=== PATIENT | female | born 1970 | race Caucasian/White ===

== ENCOUNTER 2021-07-19 15:29 | Inpatient (IN) | payer MEDICAID, OTHER ==
[~2021-07-19] VITALS: Ht 170.2 cm; Wt 101.6 kg
[2021-07-19 17:20] LABS: BASOPHILS % (AUTO) 0.9 % (0.0-2.0); EOSINOPHILS % (AUTO) 0.5 % (1.0-6.0); HEMATOCRIT 44.8 % (36-46); HEMOGLOBIN 13.8 g/dL (12.0-16.0); LYMPHOCYTES # (AUTO) 1.5 K/uL (1.0-4.8); LYMPHOCYTES % (AUTO) 25.1 % (22.0-44.0); MEAN CORPUSCULAR HGB CONC 30.8 G/dL (31.0-37.0); MEAN CORPUSCULAR VOLUME 75 fL (80-100); MONOCYTES # (AUTO) 0.5 K/uL (0.1-1.0); MONOCYTES % (AUTO) 7.9 % (2.0-9.0); NEUTROPHILS # (AUTO) 3.9 K/uL (1.8-7.7); NEUTROPHILS % (AUTO) 65.6 % (40.0-70.0); PLATELET COUNT (AUTO) 337 K/uL (150-450); RED BLOOD CELL COUNT(AUTO) 5.99 MIL/uL (4.00-5.20); RED CELL DISTRIBUTION WIDTH 34.1 % (11.5-14.5)
[2021-07-19 17:33] LABS: ANION GAP 8 mmol/L (8-16); CALCIUM, TOTAL 9.2 mg/dL (8.8-10.5); CARBON DIOXIDE 31 mmol/L (22-29); CHLORIDE 103 mmol/L (98-107); GLOMERULAR FILTR. RATE CALC > 60 mL/min (>60); GLUCOSE,RANDOM 91 mg/dL (70-110); POTASSIUM 4.4 mmol/L (3.5-5.1); SODIUM SERUM 142 mmol/L (136-145); UREA NITROGEN, BLOOD 10 mg/dL (7-18)
[2021-07-19 17:38] LABS: ALANINE AMINOTRANSFERASE 16 U/L (12-78); ALBUMIN 3.6 g/dL (3.4-5.0); ALKALINE PHOSPHATASE 89 U/L (46-116); ASPARTATE AMINOTRANSFERASE 11 U/L (15-37); BILIRUBIN,TOTAL 0.5 mg/dL (0.1-1.0); TOTAL PROTEIN, SERUM 7.5 g/dL (6.4-8.2)
[2021-07-19 18:01] LABS: COVID AG,FIA SOURCE NASOPHARYNGEAL
[2021-07-19] MEDS ORDERED: ONDANSETRON HCL 4 MG/2 ML VIAL IVP PRN (21:45)
[2021-07-19] MEDS ORDERED: ACETAMINOPHEN 325 MG TABLET PO PRN (21:45)
[2021-07-19 22:11] LABS: THYROID STIMULATING HORMONE 0.51 uIU/mL (0.36-3.74)
[2021-07-19] MEDS ORDERED: ONDANSETRON HCL 4 MG TABLET PO PRN (23:15)
[2021-07-19 23:56] VITALS: BP 147/90
[2021-07-20] MEDS: HEPARIN SODIUM,PORCINE 5,000 UNITS/ML VIAL SQ SCH ×3 (00:09→16:31)
[2021-07-20 04:54] VITALS: BP 137/88
[2021-07-20 07:58] VITALS: BP 140/80
[2021-07-20 09:58] LABS: AMPHET/METH SCREEN,URINE POSITIVE (NEGATIVE); BARBITURATE SCREEN, URINE NEGATIVE (NEGATIVE); BENZODIAZEPINES SCREEN,URINE NEGATIVE (NEGATIVE); CANNABINOID SCREEN,URINE NEGATIVE (NEGATIVE); COCAINE SCREEN,URINE NEGATIVE (NEGATIVE); METHADONE SCREEN, URINE NEGATIVE (NEGATIVE); OPIATE SCREEN,URINE NEGATIVE (NEGATIVE)
[2021-07-20 10:05] LABS: PHENCYCLIDINE SCREEN,URINE NEGATIVE (NEGATIVE)
[2021-07-20] MEDS: BuPROPion HCL XL 150 MG ER TABLET PO SCH (12:46)
[2021-07-20] MEDS: DULoxetine HCL 60 MG CAPSULE PO SCH (12:46)
[2021-07-20 15:44] VITALS: BP 145/83
[2021-07-20 20:24] VITALS: BP 149/84
[2021-07-21] MEDS: HEPARIN SODIUM,PORCINE 5,000 UNITS/ML VIAL SQ SCH ×4 (00:11→23:04)
[2021-07-21 04:40] VITALS: BP 145/77
[2021-07-21 08:02] VITALS: BP 141/70
[2021-07-21] MEDS: BuPROPion HCL XL 150 MG ER TABLET PO SCH (08:17)
[2021-07-21] MEDS: DULoxetine HCL 60 MG CAPSULE PO SCH (08:18)
[2021-07-21 15:31] VITALS: BP 151/86
[2021-07-21 20:02] VITALS: BP 154/93
[2021-07-22 00:14] VITALS: BP_SYST 148; BP_SYST 150; BP_DIAS 92
[2021-07-22] MEDS ORDERED: LISI-662 PO (00:22)
[2021-07-22] MEDS ORDERED: HYDR25TA2 PO (00:22)
[2021-07-22] MEDS ORDERED: HYDROCHLOROTHIAZIDE 25 MG TABLET PO SCH ×2 (05:00)
[2021-07-22] MEDS ORDERED: LISINOPRIL 20 MG TABLET PO SCH ×2 (05:00)
[2021-07-22] MEDS ORDERED: LISINOPRIL 20 MG TABLET PO ONE (05:15)
[2021-07-22] MEDS ORDERED: HYDROCHLOROTHIAZIDE 25 MG TABLET PO ONE (05:15)
[2021-07-22 08:00] VITALS: BP 120/64
[2021-07-22] MEDS ORDERED: BuPROPion HCL XL 150 MG ER TABLET PO SCH (09:00)
[2021-07-22] MEDS: HEPARIN SODIUM,PORCINE 5,000 UNITS/ML VIAL SQ SCH ×2 (09:08→16:00)
[2021-07-22] MEDS: DULoxetine HCL 60 MG CAPSULE PO SCH (09:09)
[2021-07-22] MEDS ORDERED: BUPR-50 PO ×2 (13:24→13:25)
[2021-07-22] MEDS ORDERED: DULO-113 PO (13:27)
[2021-07-23] MEDS ORDERED: HYDROCHLOROTHIAZIDE 25 MG TABLET PO SCH (09:00)
[2021-07-23] MEDS ORDERED: LISINOPRIL 20 MG TABLET PO SCH (09:00)
== END 2021-07-22 17:00 | DRG 881 ==
LOC: EMS 15:33 → 6S 23:52
PROVIDERS: ADMIT Internal Medicine; ATTEND Internal Medicine
DX: F32.A Depression, unspecified (principal); R45.851 Suicidal ideations; E87.3 Alkalosis; I10 Essential (primary) hypertension; F17.210 Nicotine dependence, cigarettes, uncomplicated; Z20.822 Contact with and (suspected) exposure to COVID-19; E66.9 Obesity, unspecified; F41.9 Anxiety disorder, unspecified; Z88.1 Allergy status to other antibiotic agents; Z91.030 Bee allergy status; Z90.49 Acquired absence of other specified parts of digestive tract; Z98.84 Bariatric surgery status; Z90.89 Acquired absence of other organs; Z68.35 Body mass index [BMI] 35.0-35.9, adult
CPT/HCPCS: 80053; 84443; 85025; 99285; G0480; J1644